=== PATIENT | female | born 1940 | race Caucasian/White ===

== ENCOUNTER 2016-12-12 12:14 | Day surgery (SDC) | payer MEDICARE, MEDICAID ==
[~2016-12-12 12:14] MED LIST: APRACLONIDINE HCL 50 DROP BTL LEFTEYE PRN; PHENYLEPHRINE HCL 50 DROP BTL LEFTEYE PRN; TROPICAMIDE 150 DROP BTL LEFTEYE PRN
[2016-12-12 13:17] VITALS: BP 177/88
== END 2016-12-12 12:15 | disposition home or self-care (01) ==
LOC: AMB 12:14
PROVIDERS: ATTEND Ophthalmology
PROC: 085K3ZZ Destruction of Left Lens, Percutaneous Approach (ICD-10-PCS; principal; 2016-12-12 11:45)
DX: H26.40 Unspecified secondary cataract (principal)